=== PATIENT | female | born 1970 | race Caucasian/White ===

== ENCOUNTER 2017-03-25 04:18 | Emergency (ER) | payer MEDICAID ==
[~2017-03-25] VITALS: Ht 160 cm; Wt 84.8 kg
[~2017-03-25 04:18] MED LIST: ARIP10TA33 PO
[2017-03-25 04:21] VITALS: BP 131/87
== END 2017-03-25 05:38 | disposition home or self-care (01) ==
LOC: ED 05:30
DX: Z04.8 Encounter for examination and observation for other specified reasons (principal)
CPT/HCPCS: 99281

== ENCOUNTER 2017-05-27 23:47 | Emergency (ER) | payer MEDICAID ==
[~2017-05-27] VITALS: Ht 157.5 cm; Wt 83.5 kg
[2017-05-27 23:48] VITALS: BP 143/89
[2017-05-28] MEDS ORDERED: MAALOX/HYOSCYAMINE/LIDOCAINE 45 ML BTL PO ONE
[2017-05-28] MEDS ORDERED: MAALOX/HYOSCYAMINE/LIDOCAINE 45 ML BTL ONE (00:06)
== END 2017-05-28 00:09 | disposition home or self-care (01) ==
LOC: ED 05-28 00:03
DX: K29.20 Alcoholic gastritis without bleeding (principal)
CPT/HCPCS: 99283

== ENCOUNTER 2017-08-08 19:49 | Emergency (ER) | payer MEDICAID ==
[~2017-08-08] VITALS: Ht 157.5 cm; Wt 83.0 kg
[2017-08-08 19:55] VITALS: BP 107/74
[2017-08-08 20:21] LABS: BASOPHILS # (AUTO) 0.05 x10^3/uL (0-0.1); BASOPHILS % (AUTO) 1 % (0-1); EOSINOPHILS % (AUTO) 5 % (1-7); LYMPHOCYTES % (AUTO) 41 % (22-44); MD NO; MEAN CORPUSCULAR HEMOGLOBIN 27.7 pg (27.0-34.8); MEAN CORPUSCULAR HGB CONC 33.2 g/dL (32.4-35.8); MEAN CORPUSCULAR VOLUME 83.4 fL (80-100); MEAN PLATELET VOLUME 9.2 fL (7.4-10.4); MONOCYTES % (AUTO) 5 % (2-9); NEUTROPHILS # (AUTO) 3.77 x10^3/uL (1.8-6.8); NEUTROPHILS % (AUTO) 48 % (42-75); PLATELET COUNT 287 x10^3/uL (130-400); RED BLOOD COUNT 4.52 x10^6/uL (3.82-5.3); RED CELL DISTRIBUTION WIDTH 15.9 % (9.6-15.2)
[2017-08-08] MEDS ORDERED: MAALOX/HYOSCYAMINE/LIDOCAINE 45 ML BTL PO ONE (20:30)
[2017-08-08 20:32] LABS: ALANINE AMINOTRANSFERASE 44 U/L (12-78); ALBUMIN 3.7 g/dL (3.4-5.0); ANION GAP 6 mmol/L (5-15); CALCIUM 8.9 mg/dL (8.5-10.1); CHLORIDE 112 mmol/L (98-107)
[2017-08-08 20:37] LABS: ALKALINE PHOSPHATASE 78 U/L (45-117); BILIRUBIN,TOTAL 0.4 mg/dL (0.2-1.0); CREATININE 0.77 mg/dL (0.55-1.02); TOTAL PROTEIN 7.2 g/dL (6.4-8.2)
== END 2017-08-08 23:11 | disposition left against medical advice (07) ==
LOC: ED 23:05
DX: R10.10 Upper abdominal pain, unspecified (principal)
CPT/HCPCS: 36415; 80053; 83690; 84703; 85025; 99284

== ENCOUNTER 2017-09-11 14:18 | Emergency (ER) | payer MEDICAID ==
[~2017-09-11] VITALS: Ht 152.4 cm; Wt 83.6 kg
[2017-09-11 14:21] VITALS: BP 120/81
[2017-09-11] MEDS ORDERED: MULT-658 PO (15:36)
[2017-09-11] MEDS ORDERED: CIME800T PO (15:36)
[2017-09-11] MEDS ORDERED: LANS15CA PO (15:36)
[2017-09-15] MEDS ORDERED: RANI300T3 PO (16:37)
== END 2017-09-11 16:17 | disposition home or self-care (01) ==
LOC: ED 16:10
DX: L01.01 Non-bullous impetigo (principal); L03.311 Cellulitis of abdominal wall; K21.9 Gastro-esophageal reflux disease without esophagitis
CPT/HCPCS: 99283

== ENCOUNTER 2018-01-03 17:23 | Emergency (ER) | payer MEDICAID ==
[~2018-01-03] VITALS: Ht 157.5 cm; Wt 95.6 kg
[~2018-01-03 17:23] MED LIST changes: +CIME800T PO; +LANS15CA PO; +MULT-658 PO; +RANI300T3 PO
[2018-01-03] MEDS ORDERED: MORPHINE SULFATE 4 MG/ML, 1ML ONE (19:24)
[2018-01-03] MEDS ORDERED: OMNIPAQUE 350 MG/ML, 100ML BOTTLE ONE (19:25)
[2018-01-03] MEDS ORDERED: SODIUM CHLORIDE FLUSH 10ML SYR IVF ONE (19:30)
[2018-01-03] MEDS ORDERED: SODIUM CHLORIDE 0.9% 1,000ML IVBOLUS ONE (19:30)
[2018-01-03] MEDS ORDERED: MORPHINE SULFATE 4 MG/ML, 1ML IVPush PRN (19:30)
[2018-01-03 19:36] LABS: ALBUMIN 3.9 g/dL (3.4-5.0); ANION GAP 7 mmol/L (5-15); CALCIUM 8.9 mg/dL (8.5-10.1); CHLORIDE 108 mmol/L (98-107)
[2018-01-03 19:39] LABS: ALANINE AMINOTRANSFERASE 31 U/L (12-78); ALKALINE PHOSPHATASE 90 U/L (45-117); BILIRUBIN,TOTAL 0.4 mg/dL (0.2-1.0); TOTAL PROTEIN 7.4 g/dL (6.4-8.2)
[2018-01-03 19:45] LABS: BASOPHILS # (AUTO) 0.06 x10^3/uL (0-0.1); BASOPHILS % (AUTO) 1 % (0-1); EOSINOPHILS # (AUTO) 0.25 x10^3/uL (0-0.4); EOSINOPHILS % (AUTO) 3 % (1-7); LYMPHOCYTES # (AUTO) 3.35 x10^3/uL (1-3.4); LYMPHOCYTES % (AUTO) 39 % (22-44); MD NO; MEAN CORPUSCULAR HEMOGLOBIN 29.1 pg (27.0-34.8); MEAN CORPUSCULAR HGB CONC 34.2 g/dL (32.4-35.8); MEAN CORPUSCULAR VOLUME 85.2 fL (80-100); MEAN PLATELET VOLUME 9.2 fL (7.4-10.4); MONOCYTES # (AUTO) 0.45 x10^3/uL (0.2-0.8); MONOCYTES % (AUTO) 5 % (2-9); NEUTROPHILS # (AUTO) 4.38 x10^3/uL (1.8-6.8); NEUTROPHILS % (AUTO) 52 % (42-75); PLATELET COUNT 256 x10^3/uL (130-400); RED BLOOD COUNT 4.68 x10^6/uL (3.82-5.3); RED CELL DISTRIBUTION WIDTH 14.7 % (9.6-15.2)
[2018-01-03 20:48] LABS: MICROSCOPIC NOT IND
[2018-01-03 20:51] LABS: CULTURE INDICATED? NO
[2018-01-03 21:45] VITALS: BP 118/79
== END 2018-01-03 21:47 | disposition home or self-care (01) ==
LOC: ED 21:14
DX: G89.29 Other chronic pain (principal); R10.2 Pelvic and perineal pain; K21.9 Gastro-esophageal reflux disease without esophagitis
CPT/HCPCS: 36415; 74177; 76830; 80053; 81003; 83690; 85025; 93005; 96374; 99285; J7030; Q9967

== ENCOUNTER 2020-12-15 21:44 | Emergency (ER) | payer MEDICAID ==
[~2020-12-15] VITALS: Ht 157.5 cm; Wt 90.8 kg
[2020-12-15 21:48] VITALS: BP 118/76
--- NOTE | 2020-12-15 22:21 | NUR ---
[employer]IATE: PT. TO ROOM FROM LOBBY AT THIS TIME.
[2020-12-15] MEDS ORDERED: HYDROmorphone 1 MG/ML, 1ML INJ ONE (23:13)
[2020-12-15] MEDS ORDERED: HYDROmorphone 1 MG/ML, 1ML INJ IM ONE (23:30)
== END 2020-12-16 00:51 | disposition home or self-care (01) ==
LOC: ED 23:57
DX: S32.059A Unspecified fracture of fifth lumbar vertebra, initial encounter for closed fracture (principal); Z72.9 Problem related to lifestyle, unspecified; K21.9 Gastro-esophageal reflux disease without esophagitis; Z90.49 Acquired absence of other specified parts of digestive tract; Z90.710 Acquired absence of both cervix and uterus; X58.XXXA Exposure to other specified factors, initial encounter; Y93.89 Activity, other specified; Y92.89 Other specified places as the place of occurrence of the external cause; Y99.8 Other external cause status
CPT/HCPCS: 96372; 99283; J1170

== ENCOUNTER 2021-01-06 21:05 | Emergency (ER) | payer MEDICAID ==
[~2021-01-06] VITALS: Ht 157.5 cm; Wt 93.2 kg
[2021-01-06 21:15] VITALS: BP 107/52
[2021-01-06] MEDS ORDERED: DIPHENHYDRAMINE 25 MG CAPSULE PO ONE (21:30)
[2021-01-06] MEDS ORDERED: SULFAMETH./TRIMETHOPRIM DS 800MG/160MG TABLET PO ONE (21:30)
[2021-01-06] MEDS ORDERED: DIPHENHYDRAMINE 25 MG CAPSULE ONE (21:34)
[2021-01-06] MEDS ORDERED: SULFAMETH./TRIMETHOPRIM DS 800MG/160MG TABLET ONE (21:34)
--- NOTE | 2021-01-06 21:37 | NUR ---
PT AMBULATED TO ROOM, NO ACUTE DISTRESS. PT MEDICATED PER PA ORDER, SEE EMAR. PT TOLERATED WELL.
--- NOTE | 2021-01-06 21:50 | NUR ---
F/U AND DISCHARGE INSTRUCTIONS GIVEN TO PT WITH PRESCRIPTIONS. PT BECAME IRRATE WHEN THERE WAS NO PAIN MEDS IN THE PRESCRIPTION. PT ASKED IF THE DOCTOR WAS GOING TO TAKE THE PAIN AWAY. PA TALKED WITH AND THERE IS NO FURTHER MEDS TO BE GIVEN TO PT AT THIS TIME, AND SHE IS INFORMED. PT TRIED TO TAKE A BLANKET FROM THE ROOM AND LEAVE, AND WAS TOLD TO LEAVE THE BLANKET IN THE ROOM. PT GOT IRRATE AGAIN AND THREW THE BLANKET ON THE FLOOR. PT ASKED TO DEPART AT THE DISCHARGE DESK AND AMBULATED TO IT GRUMBLING AND COMPLAINING AND CALLING THIS RN MANY FOUL NAMES.
== END 2021-01-06 21:53 | disposition home or self-care (01) ==
LOC: ED 21:39
DX: L03.115 Cellulitis of right lower limb (principal)
CPT/HCPCS: 99283; Q0163